=== PATIENT | male | born 1975 | race Caucasian/White ===

== ENCOUNTER 2017-12-31 11:19 | Emergency (ER) | payer SELFPAY ==
[2017-12-31] MEDS ORDERED: Proparacaine 0.5% Opth 15 ML BOT ONE (11:24)
[2017-12-31] MEDS ORDERED: Fluorescein Opthalmic Strip ONE (11:24)
[2017-12-31] MEDS ORDERED: Erythromycin Base 0.5% Oint 1 GM TUBE ONE (12:16)
[2017-12-31] MEDS ORDERED: Acetaminophen/Codeine 30-300mg Tablet ONE (12:16)
[2017-12-31] MEDS ORDERED: Ketorolac Tromethamine 60 MG/2 ML VIAL ONE (12:38)
== END 2017-12-31 13:17 | disposition home or self-care (01) ==
LOC: ERS 11:19
DX: H16.133 Photokeratitis, bilateral (principal); F17.290 Nicotine dependence, other tobacco product, uncomplicated; Z71.6 Tobacco abuse counseling
CPT/HCPCS: 96372; 99406; J1885